=== PATIENT | male | born 1965 | race Caucasian/White ===

== ENCOUNTER 2019-01-29 01:18 | Inpatient (IN) | payer OTHER ==
[~2019-01-29] VITALS: Ht 182.9 cm; Wt 105.3 kg
[2019-01-29 01:19] VITALS: BP 114/61
[2019-01-29] MEDS ORDERED: POTASSIUM20 PO (01:27)
[2019-01-29] MEDS ORDERED: OXYCODONE HCL 55 MG PO (01:29)
[2019-01-29] MEDS ORDERED: MICONAZOLE5 GM TOP (01:30)
[2019-01-29] MEDS ORDERED: GLUCOPHAGE1000 MG PO (01:31)
[2019-01-29] MEDS ORDERED: CALMOSEPTINE O3.5 GM TOP (01:32)
[2019-01-29 01:33] LABS: ABSOLUTE NEUTROPHILS 7.9 thou/uL (1.4-8.2); EOSINOPHILS 3.4 % (0.0-3.0); HEMATOCRIT 38.5 % (42.0-52.0); HEMOGLOBIN 12.8 gm/dL (14.0-18.0); LYMPHOCYTES 19.6 % (24.0-44.0); MCH 28.1 pg (26.0-34.0); MCHC 33.2 g/dL (28.0-37.0); MCV 84.5 fL (80.0-100.0); MONOCYTES 6.5 % (1.0-8.0); PLATELET COUNT 208 thou/uL (150-400); POLYS 69.5 % (36.0-66.0); RBC 4.56 mil/uL (4.50-6.00); RDW 19.7 % (10.5-14.5); WBC 11.4 thou/uL (4.0-11.0)
[2019-01-29] MEDS ORDERED: ZESTRIL2.5 MG PO (01:33)
[2019-01-29] MEDS ORDERED: MELATIN3 MG PO (01:33)
[2019-01-29] MEDS ORDERED: SYNTHROID25 MC1 PO (01:33)
[2019-01-29] MEDS ORDERED: MUCINEX600 MG PO (01:35)
[2019-01-29] MEDS ORDERED: LASIX 40 MG TAB40 M2 PO (01:35)
[2019-01-29] MEDS ORDERED: EUCERIN CREME57 GM (01:35)
[2019-01-29] MEDS ORDERED: CARVEDILOL12.5 MG PO (01:36)
[2019-01-29] MEDS ORDERED: LIPITOR80 MG PO (01:37)
[2019-01-29] MEDS ORDERED: ASPIR 8181 MG PO (01:38)
[2019-01-29] MEDS ORDERED: ELIQUIS2.5 MG PO (01:38)
[2019-01-29] MEDS ORDERED: IPRAT-ALBUT 0.5-3 ML INH (01:39)
[2019-01-29] MEDS ORDERED: MINTOX PLUS TA1 EACH PO ×2 (01:40→02:22)
[2019-01-29 01:41] LABS: CALCIUM 9.6 mg/dL (8.5-10.1); CREATININE 1.2 mg/dL (0.7-1.3); POTASSIUM 4.4 mmol/L (3.5-5.1)
[2019-01-29 01:47] LABS: ALBUMIN 3.5 g/dL (3.4-5.0); TOTAL BILIRUBIN 0.9 mg/dL (<0.1-1.0); TOTAL PROTEIN 7.6 g/dL (6.4-8.2)
[2019-01-29] MEDS ORDERED: ACETYLCYST200 MG/1 M (02:22)
[2019-01-29] MEDS ORDERED: TYLENOL325 MG PO (02:27)
[2019-01-29] MEDS ORDERED: BISACODYL SUPP10 MG RECTAL (02:28)
[2019-01-29 02:33] LABS: URINE BILIRUBIN 1+ (Negative); URINE BLOOD 3+ (Negative); URINE CLARITY CLEAR; URINE COLOR YELLOW; URINE GLUCOSE-RANDOM* NEGATIVE (Negative); URINE KETONES 1+ (Negative); URINE PROTEIN (DIPSTICK) 3+ (Negative); URINE SPECIFIC GRAVITY >= 1.030 (1.005-1.035); URINE UROBILINOGEN 0.2 E.U./dl (0.2-1.0)
[2019-01-29] MEDS ORDERED: ZOFRAN4 MG PO (02:33)
[2019-01-29] MEDS ORDERED: DOCUSATE RECTAL (02:33)
[2019-01-29 02:34] LABS: URINE LEUKOCYTES-REFLEX 3+ (Negative); URINE NITRITE-REFLEX POSITIVE (Negative)
[2019-01-29 02:44] LABS: CASTS None Seen /LPF (None Seen); CRYSTALS None Seen /LPF (None Seen); MUCUS 4-6 Moderate strn/LPF (None Seen); SQUAMOUS 4-10 Moderate /LPF (0-3); URINE RBC >20 Many /HPF (0-2); URINE WBC-REFLEX >25 Many /HPF (0-5); WBC CLUMPS Packed (None Seen)
[2019-01-29 08:07] VITALS: BP 95/48
[2019-01-29 08:13] VITALS: BP 116/57
[2019-01-29 09:50] VITALS: BP 108/67
[2019-01-29 13:50] VITALS: BP 112/60
--- NOTE | 2019-01-29 15:06 | NUR ---
PT ADMITTED RELATED TO NAUSEA/VOMITING. CM REVIEWED CHART AND SPOKE WITH CARE TEAM. CM MET WITH PT AT BEDSIDE THIS DAY. PT IS A&O X4. CM ROLE INTRODUCED. PT INDICATED HE HAD BEEN AT [facility] PROCEDURES TECH FOR REHAB FOLLOWING A STROKE. HE INDICATED HE HAD USED A FWW AND A WHEELCHAIR TO ASSIST WITH MOBILITY AT [facility]. PT INDICATED HE HAD LIVED IN A HOUSE ALONE WITH NO STEPS TO ENTER AND NO STEPS INSIDE. PT INDICATED HE HAD BEEN INDEPENDENT WITH AMBULATION PRIOR TO HIS STROKE. PT INDICATED HE HOPES TO RETURN TO [facility] ONCE MEDICALLY STABLE. CM NOTIFIED CORY RIOS LIAISON AND SPOKE WITH PT'S DTR. CM TO FOLLOW INDICATED WITH DC PLANNING.
[2019-01-29 19:40] VITALS: BP 98/85
--- NOTE | 2019-01-29 20:27 | NUR ---
ASSUMED CARE 0700. A/OX 4 FROM [facility] REHAB PMHS OF CARDIAC ARREST IN . LEFT SIDE TREMMERS AND WEAKNESS. UP WITH GAIT BELT/WALKER ASSIST X1, AFIB ON TELE. TRACH CAPED -WANTS IT REMOVED. PEG TUBE SEEN BY DR BLACK PLANS TO REMOVE. DENIES NAUSEA/VOMITING MOVED TO FULL LIQUID. FALL PRECATIONS IN PLACE. CALLS APPROPRIATLEY.
[2019-01-30 03:35] VITALS: BP 104/57
[2019-01-30 05:38] LABS: HEMATOCRIT 37.3 % (42.0-52.0); HEMOGLOBIN 12.2 gm/dL (14.0-18.0); MCH 28.3 pg (26.0-34.0); MCHC 32.8 g/dL (28.0-37.0); MCV 86.2 fL (80.0-100.0); RBC 4.33 mil/uL (4.50-6.00)
[2019-01-30 05:48] LABS: CALCIUM 9.2 mg/dL (8.5-10.1); CREATININE 0.6 mg/dL (0.7-1.3)
[2019-01-30 07:15] VITALS: BP 110/56
--- NOTE | 2019-01-30 07:27 | NUR ---
progress pt a/o x4 up with 1 gb and walker able to assist in cares, trying to have a bm but passed a large amount of flatus, valentin in tact draining mod amount of yellow urine. assists in repositioning self. continue poc.
--- NOTE | 2019-01-30 13:12 | NUR ---
TOWARDS POC PT A/O X4, FORGETFULL, CALLS OUT APPROPRIATELY. VSS, AFEBRILE, PAIN MANAGED BY MEDS. REMAINED ON 3L O2. TRACH TUBE PULLED OUT BY . DRESSING IN PLACE, INSTRUCSTIONS GIVEN TO PT. PT [facility] WILL BE ON HOLD UNTIL MONDAY FOR PEG TUBE REMOVAL. [facility] INTACT. WILL CONTINUE TO MONITOR.
[2019-01-30 13:59] VITALS: BP 98/59
[2019-01-30 19:03] VITALS: BP 120/62
[2019-01-31 02:57] VITALS: BP 118/68
[2019-01-31 07:46] VITALS: BP 135/72
[2019-01-31 14:45] VITALS: BP 137/53
--- NOTE | 2019-01-31 18:51 | NUR ---
Receiced awake on chair. On room air. Trach removed, dressing dry and intact. With IV at R FA, NS at 75cc/hr, infusing well. Patient for removal of PEG tomorrow. Assessed by ST today, patient put on mechanical soft ground diet. With Paz in situ, draining orange urine. Patient stayed in chair all day, refused to go back to bed. Visited by daughter today. Able to swallow small tablets, big tablets have to be cut into 1/2, swallowed without coughing. Alert and oriented. Blood sugar taken and monitored. Complaining of pain, due pain killer given as prescribed, with partial pain relief.
[2019-01-31 20:06] VITALS: BP 108/57
[2019-02-01 03:55] VITALS: BP 136/80
[2019-02-01 07:32] VITALS: BP 132/82
--- NOTE | 2019-02-01 10:29 | NUR ---
progress pt a/o x4 reports back pain at an level of 8 1 mg morphine given x2 with effect. trach site cleaned and site looks like it is closing already. plan to have stair climbing with PT today discharge planning continues.
[2019-02-01] MEDS ORDERED: CEFUROXIME500 MG PO (12:01)
--- NOTE | 2019-02-01 15:38 | NUR ---
CORY WITH [facility] ASSESSED PT AND INDICATED THAT THEY WOULD BE ABLE TO ACCEPT PT BACK FOR ACUTE REHAB THIS DAY. CM MOTIFIED PT AND HE IS AWARE AND AGREEABLE. CM ATTEMPTED TO NOTIFY PT'S DTR MARIA INES BUT SHE WASN'T ANSWERING HER PHONE AND VM WASN'T AVAIABLE. TRANSPORT IS ARRANGED FOR 1700 VIA [facility]. CHART COPY MADE. ORDERS FAXED. REPORT TO BE CALLED TO . NO OTHER CM INTERVENTION INDICATED AT THIS TIME. CASE CLOSED.
[2019-02-01 17:21] VITALS: BP 132/82
== END 2019-02-01 17:30 | DRG 690 ==
LOC: ER 01:18 → EROBS 04:39 → 4W 08:44
PROVIDERS: Nurse Practitioner Family; Student in an Organized Health Care Education/Training Program; ADMIT Hospitalist
DX: N39.0 Urinary tract infection, site not specified (principal); I77.4 Celiac artery compression syndrome; I69.354 Hemiplegia and hemiparesis following cerebral infarction affecting left non-dominant side; K82.8 Other specified diseases of gallbladder; I25.10 Atherosclerotic heart disease of native coronary artery without angina pectoris; K29.70 Gastritis, unspecified, without bleeding; E11.9 Type 2 diabetes mellitus without complications; E78.5 Hyperlipidemia, unspecified; E03.9 Hypothyroidism, unspecified; B95.5 Unspecified streptococcus as the cause of diseases classified elsewhere; I25.2 Old myocardial infarction; Z95.5 Presence of coronary angioplasty implant and graft; Z87.891 Personal history of nicotine dependence; Z93.1 Gastrostomy status; Z93.0 Tracheostomy status; Z79.01 Long term (current) use of anticoagulants; Z79.84 Long term (current) use of oral hypoglycemic drugs; Z79.82 Long term (current) use of aspirin; Z79.899 Other long term (current) drug therapy
CPT/HCPCS: 10045